=== PATIENT | female | born 1995 | race Hispanic/Latino ===

== ENCOUNTER 2018-07-08 16:27 | Emergency (ER) | payer MEDICAID, SELFPAY ==
[2018-07-08] MEDS ORDERED: LIDOCAINE 1% MPF 5 ML VIAL ONE (17:16)
[2018-07-08] MEDS ORDERED: TETANUS & DIPHTHERIA TOX,ADULT 0.5 ML VIAL ONE (17:16)
--- NOTE | 2018-07-08 17:45 | ER ---
Nurse's Notes [facility] Name: Franny Auguste Age: 22 yrs Sex: Female : 1995 Arrival Date: 07/08/2018 Time: 16:30 Bed 11 Private MD: Diagnosis: Cutaneous abscess of left lower limb Presentation: 07/08 16:33 Presenting complaint: Patient states: "I had this thing pop up behind my left leg and sv it just keeps getting bigger in size." Denies fever/chills. Transition of care: patient was not received from another setting of care. Onset of symptoms was July 04, 2018. Care prior to arrival: None. 16:33 Method Of Arrival: Ambulatory sv 16:33 Acuity: DONTE 4 sv 17:16 Risk Assessment: Do you want to hurt yourself or someone else? Patient reports no aj1 desire to harm self or others. Initial Sepsis Screen: Does the patient meet any 2 criteria? No. Patient's initial sepsis screen is negative. Does the patient have a suspected source of infection? No. Patient's initial sepsis screen is negative. Historical: - Allergies: 16:34 No Known Allergies; sv - PMHx: 16:34 None; sv - PSHx: 16:34 None; sv - Immunization history:: Last tetanus immunization: unknown. - Social history:: Smoking status: unknown. - Ebola Screening: : Patient denies travel to an Ebola-affected area in the 21 days before illness onset. Screenin:00 Abuse screen: Denies threats or abuse. Denies injuries from another. Nutritional aj1 screening: No deficits noted. Tuberculosis screening: No symptoms or risk factors identified. 18:30 Fall Risk None identified. aj1 Assessment: 17:00 General: Appears in no apparent distress. uncomfortable, Behavior is calm, cooperative, aj1 appropriate for age. Pain: Complains of pain in left hamstring. Neuro: Level of Consciousness is awake, alert, obeys commands, Oriented to person, place, time, situation. Cardiovascular: Patient's skin is warm and dry. Respiratory: Airway is patent Respiratory effort is even, unlabored, Respiratory pattern is regular, symmetrical. GI: No signs and/or symptoms were reported involving the gastrointestinal system. : No signs and/or symptoms were reported regarding the genitourinary system. EENT: No signs and/or symptoms were reported regarding the EENT system. Derm: Abscess located on left hamstring. Musculoskeletal: No signs and/or symptoms reported regarding the musculoskeletal system. Circulation, motion, and sensation intact. 17:14 Reassessment: Dwayne Chance NP at bedside. aj1 18:29 Reassessment: Patient appears in no apparent distress at this time. No changes from aj1 previously documented assessment. Patient and/or family updated on plan of care and expected duration. Pain level reassessed. Patient is alert, oriented x 3, equal unlabored respirations, skin warm/dry/pink. Vital Signs: 16:34 BP 128 / 92; Pulse 79; Resp 16; Temp 98.7(O); Pulse Ox 100% ; Weight 47.63 kg; Height 5 sv ft. 2 in. (157.48 cm); Pain 7/10; 18:30 BP 118 / 67; Pulse 85; Resp 16; Pulse Ox 100% on R/A; aj1 16:34 Body Mass Index 19.21 (47.63 kg, 157.48 cm) sv ED Course: 16:30 Patient arrived in ED. mr 16:34 Triage completed. sv 16:35 Arm band placed on. sv 16:52 Jesus Chance NP is PHCP. pm1 16:52 Norbert Hernandez MD is Attending Physician. pm1 17:00 Patient has correct armband on for positive identification. Bed in low position. Call aj1 light in reach. Side rails up X 1. 17:00 No provider procedures requiring assistance completed. aj1 17:02 Desi Bolaños RN is Primary Nurse. aj1 18:30 Patient did not have IV access during this emergency room visit. Wound care: to I\\T\\D aj1 site was dressed with 4X4s, secured with tape, Patient tolerated well. Administered Medications: 17:07 Drug: Tetanus-Diphtheria Toxoid Adult 0.5 ml {Form Builder: [employer]. Exp: aj1 05/08/2020. Lot #: [id number]. } Route: IM; Site: right deltoid; 18:05 Follow up: Response: No adverse reaction aj1 17:08 Drug: Lidocaine (1 %) 5 ml {Note: given by Dwayne Chance NP.} Volume: 5 ml; Route: aj1 Infiltration; 18:05 Follow up: Response: No adverse reaction aj1 18:29 Drug: Tylenol #3 (300 mg-30 mg) 2 tabs Route: PO; aj1 18:31 Follow up: Response: No adverse reaction aj1 Outcome: 17:44 Discharge ordered by . pm1 18:30 Discharged to home ambulatory. aj1 18:30 Condition: good 18:30 Discharge instructions given to patient, Instructed on discharge instructions, follow up and referral plans. no drinking with medication, no driving heavy equipment, medication usage, Demonstrated understanding of instructions, follow-up care, medications, Prescriptions given X 2. 18:31 Patient left the ED. aj1 Signatures: Desi Bolaños RN RN aj Robina Mccann RN RN Yanely Snow Patrick, [employer] pm1 Corrections: (The following items were deleted from the chart) 16:35 16:33 Acuity: DONTE 3 sv sv 16:36 16:34 BP 128 / 92; Pulse 79bpm; Resp 16bpm; Pulse Ox 100%; 47.63 kg; Height 5 ft. 2 sv in.; BMI: 19.2; Pain 7/10; sv
--- NOTE | 2018-07-08 17:45 | EDPHYS ---
Physician Documentation [facility] Name: Franny Auguste Age: 22 yrs Sex: Female : 1995 Arrival Date: 07/08/2018 Time: 16:30 Bed 11 Private MD: ED Physician Norbert Hernandez HPI: 07/08 17:00 This 22 yrs old Female presents to ER via Ambulatory with complaints of pm1 Abscess. 17:00 The patient presents with an abscess of the left hamstring. Description: draining, pm1 raised. Onset: The symptoms/episode began/occurred 4 day(s) ago. Possible cause(s): unknown. Associated signs and symptoms: Pertinent negatives: fever. Modifying factors: the symptoms are aggravated by squeezing the lesion and expressing the contents, touching. Severity of symptoms: in the emergency department the symptoms are actually worse. The patient has not experienced similar symptoms in the past. The patient has not recently seen a physician. Historical: - Allergies: 16:34 No Known Allergies; sv - PMHx: 16:34 None; sv - PSHx: 16:34 None; sv - Immunization history:: Last tetanus immunization: unknown. - Social history:: Smoking status: unknown. - Ebola Screening: : Patient denies travel to an Ebola-affected area in the 21 days before illness onset. ROS: 17:00 Constitutional: Negative for fever, chills, and weight loss, Eyes: Negative for injury, pm1 pain, redness, and discharge, ENT: Negative for injury, pain, and discharge, Neck: Negative for injury, pain, and swelling, Cardiovascular: Negative for chest pain, palpitations, and edema, Respiratory: Negative for shortness of breath, cough, wheezing, and pleuritic chest pain, Abdomen/GI: Negative for abdominal pain, nausea, vomiting, diarrhea, and constipation, Back: Negative for injury and pain, MS/Extremity: Negative for injury and deformity. 17:00 Neuro: Negative for headache, weakness, numbness, tingling, and seizure. 17:00 Skin: Positive for abscess, of the left hamstring. Exam: 17:00 Constitutional: This is a well developed, well nourished patient who is awake, alert, pm1 and in no acute distress. Head/Face: Normocephalic, atraumatic. Eyes: Pupils equal round and reactive to light, extra-ocular motions intact. Lids and lashes normal. Conjunctiva and sclera are non-icteric and not injected. Cornea within normal limits. Periorbital areas with no swelling, redness, or edema. ENT: Nares patent. No nasal discharge, no septal abnormalities noted. Tympanic membranes are normal and external auditory canals are clear. Oropharynx with no redness, swelling, or masses, exudates, or evidence of obstruction, uvula midline. Mucous membranes moist. Neck: Trachea midline, no thyromegaly or masses palpated, and no cervical lymphadenopathy. Supple, full range of motion without nuchal rigidity, or vertebral point tenderness. No Meningismus. Chest/axilla: Normal chest wall appearance and motion. Nontender with no deformity. No lesions are appreciated. Cardiovascular: Regular rate and rhythm with a normal S1 and S2. No gallops, murmurs, or rubs. Normal PMI, no JVD. No pulse deficits. Respiratory: Lungs have equal breath sounds bilaterally, clear to auscultation and percussion. No rales, rhonchi or wheezes noted. No increased work of breathing, no retractions or nasal flaring. Abdomen/GI: Soft, non-tender, with normal bowel sounds. No distension or tympany. No guarding or rebound. No evidence of tenderness throughout. Back: No spinal tenderness. No costovertebral tenderness. Full range of motion. 17:00 Skin: Appearance: normal except for affected area, abscess, that is small, approximately 1 cm(s), of the left hamstring, cellulitis, is not appreciated. Vital Signs: 16:34 BP 128 / 92; Pulse 79; Resp 16; Temp 98.7(O); Pulse Ox 100% ; Weight 47.63 kg; Height 5 sv ft. 2 in. (157.48 cm); Pain 7/10; 18:30 BP 118 / 67; Pulse 85; Resp 16; Pulse Ox 100% on R/A; aj1 16:34 Body Mass Index 19.21 (47.63 kg, 157.48 cm) sv Procedures: 17:33 I \T\ D: Incision and drainage was performed for an abscess of the left left hamstring pm1 Prepped with Betadine, Anesthetized with 4 ml's 1% Lidocaine. Incised with No incision required. Loculations are present at the surface. Removed with tweezers and hemostats and cavity cleansed with sterile NS. Drained Loculations removed. Abscess cavity explored. Packed with iodoform gauze, Dressing: sterile 4x4 gauze, the patient tolerated the procedure well. MDM: 16:52 Patient medically screened. pm1 17:41 Data reviewed: vital signs. Data interpreted: Pulse oximetry: on room air is 100 %. pm1 Interpretation: normal. Counseling: I had a detailed discussion with the patient and/or guardian regarding: the historical points, exam findings, and any diagnostic results supporting the discharge/admit diagnosis, the need for outpatient follow up, a family practitioner, a general surgeon, to return to the emergency department if symptoms worsen or persist or if there are any questions or concerns that arise at home. 07/08 16:56 Order name: Incision \T\ Drainage Setup; Complete Time: 17:10 pm1 Administered Medications: 17:07 Drug: Tetanus-Diphtheria Toxoid Adult 0.5 ml {Dog Sitter: [employer] Exp: aj1 05/08/2020. Lot #: [id number]. } Route: IM; Site: right deltoid; 18:05 Follow up: Response: No adverse reaction aj1 17:08 Drug: Lidocaine (1 %) 5 ml {Note: given by Dwayne Chance NP.} Volume: 5 ml; Route: aj1 Infiltration; 18:05 Follow up: Response: No adverse reaction [facility] 18:29 Drug: Tylenol #3 (300 mg-30 mg) 2 tabs Route: PO; aj 18:31 Follow up: Response: No adverse reaction aj Disposition: 07/09 09:38 Co-signature as Attending Physician, Norbert Hernandez MD. Disposition: 07/08/18 17:44 Discharged to Home. Impression: Cutaneous abscess of left lower limb. - Condition is Stable. - Discharge Instructions: Skin Abscess, Incision and Drainage. - Prescriptions for Keflex 500 mg Oral Capsule - take 1 capsule by ORAL route every 6 hours for 10 days; 40 capsule. Tylenol- Codeine #3 300-30 mg Oral Tablet - take 2 tablets by ORAL route every 6 hours As needed; 20 tablet. Bactrim DS 800- 160 mg Oral Tablet - take 1 tablet by ORAL route every 12 hours for 10 days; 20 tablet. - Medication Reconciliation Form, Thank You Letter, Antibiotic Education, Prescription Opioid Use form. - Follow up: Emergency Department; When: As needed; Reason: Worsening of condition. Follow up: Private Physician; When: 2 - 3 days; Reason: Recheck today's complaints, Continuance of care, Re-evaluation by your physician. - Problem is new. - Symptoms have improved. Signatures: Desi Bolaños RN RN aj1 Robina Mccann RN RN Jesus Chance NP [employer] INSTRUCTOR pm1 Norbert Hernandez MD MD Corrections: (The following items were deleted from the chart) 07/08 18:31 17:44 07/08/2018 17:44 Discharged to Home. Impression: Cutaneous abscess of left lower aj1 limb. Condition is Stable. Forms are Medication Reconciliation Form, Thank You Letter, Antibiotic Education, Prescription Opioid Use. Follow up: Emergency Department; When: As needed; Reason: Worsening of condition. Follow up: Private Physician; When: 2 - 3 days; Reason: Recheck today's complaints, Continuance of care, Re-evaluation by your physician. Problem is new. Symptoms have improved. pm1
[2018-07-08] MEDS ORDERED: CODEINE 30MG/APAP 300MG TAB ONE (18:21)
== END 2018-07-08 18:31 | disposition home or self-care (01) ==
LOC: ER 16:27
PROC: 0J9P0ZZ Drainage of Left Lower Leg Subcutaneous Tissue and Fascia, Open Approach (ICD-10-PCS; principal; 2018-07-08)
DX: L02.416 Cutaneous abscess of left lower limb (principal); Z23 Encounter for immunization
CPT/HCPCS: 90714; 99283